=== PATIENT | male | born 1950 | race Caucasian/White ===

== ENCOUNTER 2016-09-27 19:43 | Emergency (ER) | payer MEDICARE, OTHER | END 2016-09-27 21:55 | disposition left against medical advice (07) | LOC: ER1 19:43 | DX: Z53.21 Procedure and treatment not carried out due to patient leaving prior to being seen by health care provider (principal) ==

== ENCOUNTER → 2016-09-27 | Outpatient (CLI) | payer MEDICARE, OTHER ==
[~2016-09-27] MED LIST: ASPIRIN CHEWABL81 MG PO; CLEOCIN IV; DURAGESIC 50 MCG1 EA TD; FOLIC ACID0.4 MG PO; JANUVIA 100 MG100 MG PO; LANTUS100 UNIT/1 SC; LIPITOR TAB 2020 MG PO; LYRICA50 MG PO; MAGNESIUM400 MG PO; METOPROLOL TART50 MG PO; MULTIVITAMINS1 EAC1 PO; NOVOLOG100 UNIT/1 SQ; OXYCODONE HCL10 MG PO; POTASSIUM CHLO10 MEQ PO; PREDNISONE5 MG PO; REMICADE I100 MG/VIA IV; TORSEMIDE20 MG PO; VANCOCIN 125MG/2.5ML IV
[2016-09-27 10:38] LABS: HEMOGLOBIN 15.1 gm/dl (14.0-17.5); RED BLOOD COUNT 4.95 M/UL (4.20-5.50)
[2016-09-27 10:42] LABS: WHITE BLOOD COUNT 36.7 K/UL (4.5-11.0)
[2016-09-27 10:53] LABS: BUN/CREATININE RATIO 20 (0-10)
== END ==
LOC: OPSV2 09:30
PROVIDERS: Orthopaedic Surgery
DX: Z01.812 Encounter for preprocedural laboratory examination (principal); M01.X22 Direct infection of left elbow in infectious and parasitic diseases classified elsewhere
CPT/HCPCS: 36415; 80048; 85027

== ENCOUNTER 2016-09-30 05:53 | Observation (INO) | payer MEDICARE, OTHER ==
[~2016-09-30] VITALS: Ht 193 cm; Wt 102.5 kg
[2016-09-30] MEDS ORDERED: LIPITOR TAB 2020 MG PO (06:51)
[2016-09-30] MEDS ORDERED: JANUVIA 100 MG100 MG PO (06:52)
[2016-09-30] MEDS ORDERED: DURAGESIC 50 MCG1 EA TD (06:52)
[2016-09-30] MEDS ORDERED: LANTUS100 UNIT/1 SC (06:53)
[2016-09-30] MEDS ORDERED: NOVOLOG100 UNIT/1 SQ (06:54)
[2016-09-30] MEDS ORDERED: METOPROLOL TART50 MG PO (06:54)
[2016-09-30] MEDS ORDERED: OXYCODONE HCL10 MG PO (06:55)
[2016-09-30] MEDS ORDERED: POTASSIUM CHLO10 MEQ PO (06:56)
[2016-09-30] MEDS ORDERED: PREDNISONE5 MG PO (06:57)
[2016-09-30] MEDS ORDERED: TORSEMIDE20 MG PO (07:01)
[2016-09-30] MEDS ORDERED: REMICADE I100 MG/VIA IV (07:02)
[2016-09-30] MEDS ORDERED: CLEOCIN IV (07:03)
[2016-09-30] MEDS ORDERED: LYRICA50 MG PO (07:03)
[2016-09-30] MEDS ORDERED: ASPIRIN CHEWABL81 MG PO (07:03)
[2016-09-30] MEDS ORDERED: FOLIC ACID0.4 MG PO (07:04)
[2016-09-30] MEDS ORDERED: MULTIVITAMINS1 EAC1 PO (07:04)
[2016-09-30] MEDS ORDERED: MAGNESIUM400 MG PO (07:04)
[2016-09-30 08:26] LABS: HEMOGLOBIN 13.9 gm/dl (14.0-17.5); RED BLOOD COUNT 4.52 M/UL (4.20-5.50)
[2016-09-30 08:29] LABS: WHITE BLOOD COUNT 37.7 K/UL (4.5-11.0)
[2016-09-30 14:21] LABS: BUN/CREATININE RATIO 29 (0-10)
[2016-10-01 04:42] LABS: HEMOGLOBIN 13.3 gm/dl (14.0-17.5); RED BLOOD COUNT 4.35 M/UL (4.20-5.50)
[2016-10-01 04:44] LABS: WHITE BLOOD COUNT 33.8 K/UL (4.5-11.0)
[2016-10-01 04:59] LABS: BUN/CREATININE RATIO 25 (0-10)
[2016-10-02 06:04] LABS: HEMOGLOBIN 13.9 gm/dl (14.0-17.5); RED BLOOD COUNT 4.53 M/UL (4.20-5.50); WHITE BLOOD COUNT 29.6 K/UL (4.5-11.0)
[2016-10-02 06:26] LABS: BUN/CREATININE RATIO 24 (0-10)
[2016-10-02] MEDS ORDERED: VANCOCIN 125MG/2.5ML IV (19:48)
== END 2016-10-02 20:03 | disposition home or self-care (01) ==
LOC: OR 05:53 → MED SURG 4 05:54 → OR 08:15 → MED SURG 4 17:02 → OR 10-02 20:03 → MED SURG 4 10-02 20:03
PROVIDERS: Hospitalist; Internal Medicine; Physician Assistant Medical; ADMIT Orthopaedic Surgery
DX: M70.22 Olecranon bursitis, left elbow (principal); B95.8 Unspecified staphylococcus as the cause of diseases classified elsewhere; I10 Essential (primary) hypertension; E11.9 Type 2 diabetes mellitus without complications; D86.9 Sarcoidosis, unspecified; I42.5 Other restrictive cardiomyopathy; M81.0 Age-related osteoporosis without current pathological fracture; E78.5 Hyperlipidemia, unspecified; Z79.82 Long term (current) use of aspirin; Z79.4 Long term (current) use of insulin; Z79.891 Long term (current) use of opiate analgesic; Z79.899 Other long term (current) drug therapy; Z53.09 Procedure and treatment not carried out because of other contraindication
CPT/HCPCS: 36415; 80048; 80202; 82962; 83735; 85027; 87040; 93312; 93320; G0378; J2250; J2310; J3010; J3370; J7030; J7070

== ENCOUNTER → 2016-10-03 | Outpatient (CLI) | payer MEDICARE, OTHER ==
[~2016-10-03] VITALS: Ht 193 cm; Wt 99.8 kg
== END ==
LOC: OPSV 08:14
DX: B95.8 Unspecified staphylococcus as the cause of diseases classified elsewhere (principal)
CPT/HCPCS: 96365; 96366; J3370; J7070

== ENCOUNTER → 2016-10-16 | Outpatient (CLI) | payer MEDICARE, OTHER | LOC: OPSV 12:51 | DX: D72.829 Elevated white blood cell count, unspecified (principal) | CPT/HCPCS: G0463 ==